=== PATIENT | male | born 1990 | race Caucasian/White ===

== ENCOUNTER → 2017-02-25 | Day surgery (SDC) | payer SELFPAY ==
[~2017-02-25] VITALS: Ht 182.9 cm; Wt 59.3 kg
[~2017-02-25] MED LIST: ACETAMINOPHEN/HYDROcodone 325 MG/5 MG TAB PO PRN; BUPIVACAINE/EPINEPHRINE 0.25% 50 ML VIAL ONE; CHLORHEXIDINE GLUCONATE 2 % 1 PACK (2 CLOTHS) TOPICAL PRN; CHLORHEXIDINE GLUCONATE 4% SOLN 120 ML BTL TOPICAL SCH; DO NOT ADM ANY ANTICOAGULANT DRUGS PRN; GENTAMICIN SULFATE 80 MG/2 ML VIAL ONE; INSULIN HUMAN REGULAR 1,000 UNITS/10 ML VIAL SQ PRN; LACTATED RINGER'S 1000 ML IV PRN; METOPROLOL TARTRATE 25 MG TAB PO PRN; MORPHINE SULFATE 4 MG/ML INJ IV PUSH PRN; NORC5TAB PO; ONDANSETRON HCL 4 MG/2 ML VIAL IV PRN; ONDANSETRON HCL 4 MG/2 ML VIAL IV PUSH ONE; OXYC1SOL5 PO; POVIDONE IODINE 5% (ANTISEPSIS KIT) 4 APPLICATIONS EACH NARE PRN; PROPOFOL 200 MG/20 ML AMP IV ONE; SODIUM CHLORID 0.9% 500 ML IV PRN; SODIUM CHLORIDE 0.9% FLUSH 10 ML FLUSH IV FLUSH PRN; SODIUM CHLORIDE 0.9% FLUSH 10 ML FLUSH IV FLUSH SCH; SUGAMMADEX SODIUM 200 MG/2 ML VIAL IV PUSH ONE; VANCOMYCIN HCL 1000 MG VIAL ONE; ceFAZolin 2 GM PREMIX 50 ML IV SCH
[2017-02-25 06:11] VITALS: BP 101/57; PULSE 59; RESP 18; TEMP 97.8; O2SAT 98
--- NOTE | 2017-02-25 07:54 | PD.OP ---
cc: Eliseo Ramsey MD Operative Report Date of Surgery: Feb 25, 2017 Preoperative Diagnosis: Painful hardware left clavicle Postoperative Diagnosis: Same Procedure: Removal deep hardware left clavicle Anesthesia: Gen. Surgeon: Eliseo Ramsey Residence Counselor(s): KASSY Simons PA-C Operation and Findings: Ino had a previous fracture of his left clavicle treated with open reduction internal fixation. He developed significant pain around the plate. He failed conservative treatment and wished to have surgery for removal of hardware. His brought to operating room placed on or table. He was given IV sedation and general anesthesia. Left shoulder was prepped with alcohol followed by Hibiclens and draped usual sterile fashion. Timeout procedure was performed. Procedure began with a 4 inch incision through previous scar. Subcutaneous tissue dissected with Bovie. Scar tissue was incised around the plate. Plate and screws were now exposed. A screwdriver was used to loosen all the screws. Each of the screws was now removed. The plate was now elevated. A rongeur was used to debride soft tissue around the plate edges. Fluoroscopy confirmed that the hardware had been removed and fracture was healed. Incision was thoroughly irrigated. Subcutaneous tissues closed with 3-0 Vicryl and skin was closed with corrina. Sterile dressings were applied. The incisional region was infiltrated with quarter percent Marcaine with epinephrine. Needle and sponge counts were correct. Patient was awakened and transferred to recovery room in stable condition Eliseo Ramsey MD Feb 25, 2017 07:53
[2017-02-25 09:35] VITALS: BP 118/66; PULSE 57; RESP 18; TEMP 97.8; O2SAT 98
--- NOTE | 2017-02-25 13:25 | RADRPT ---
EXAM DATE/TIME: 02/25/2017 07:40 [facility] COMPARISON: CLAVICLE LEFT, September 05, 2016, 13:54. INDICATIONS : Left clavicle hardware removal. MEDICAL HISTORY : None. SURGICAL HISTORY : None. ENCOUNTER: Initial ACUITY: 1 day PAIN SCORE: Non-responsive. LOCATION: Left clavicle. FINDINGS: Two view examination of the left clavicle demonstrates interval removal of the previously identified left clavicular sideplate and osseous screws. Callus formation across the previous fracture line. No acute injury. CONCLUSION: Interval removal of left clavicular sideplate and osseous screws. Marv Travis MD on February 25, 2017 at 13:21 Board Certified Radiologist. This report was verified electronically.
== END | disposition home or self-care (01) ==
LOC: HSDC 05:23
PROVIDERS: ATTEND Orthopaedic Surgery Orthopaedic Trauma
DX: T84.84XA Pain due to internal orthopedic prosthetic devices, implants and grafts, initial encounter (principal); Y83.1 Surgical operation with implant of artificial internal device as the cause of abnormal reaction of the patient, or of later complication, without mention of misadventure at the time of the procedure
CPT/HCPCS: 00450; 20680; 73000; 76000; J0690; J1580; J2405; J3010; J3370; J7120